=== PATIENT | male | born 1990 | race Caucasian/White ===

== ENCOUNTER 2018-10-23 07:03 | Day surgery (SDC) | payer MEDICAID, SELFPAY ==
[2018-10-23 07:26] VITALS: BP 127/69; PULSE 71; RESP 16; TEMP 35.9; O2SAT 98
[2018-10-23 07:30] VITALS: BP 127/69; PULSE 71; RESP 16; TEMP 35.9; O2SAT 98
[2018-10-23] MEDS: Lactated Ringers 1,000 ML 80 ML IV (07:40)
--- NOTE | 2018-10-23 08:27 | STOM_PTH ---
PATIENT: NILDA SHINE LOC: [facility] U#:[id number] AGE/SX: 28/M ROOM: RE10/23/[address]: Triny Moran : 1990 BED: DIS: 10/23/2018 SPEC #: [id number] RECD: 10/23/18 12:48 STATUS: JANEEN MOORE #: [id number] SMOOTH: 10/23/18 08:[address]: Triny Moran DEPT: Surgical Specimen RECD BY: Alberta Coleman ENTERED: 10/23/18 12:51 SP TYPE: STOMACH OTHR DR: Etta eCsar Tissues: 1 - BIOPSY BOWEL 2 - STOMACH BIOPSY 3 - ESOPHAGUS BIOPSY 4 - ESOPHAGUS BIOPSY Procedures: GROSS AND MICRO LEVEL 4 Comments: [id number]
--- NOTE | 2018-10-23 08:44 | ENDO_ITS ---
Date of service: 10/23/18 Time of Service: 08:43 Endoscopy Report DATE OF PROCEDURE: 10/23/18 PRE-OP DIAGNOSIS: gerd POST-OP DIAGNOSIS: other (esophagitisi ) PROCEDURE: egd w/ bx After informed consent was obtained the patient was take to the procedure room and placed in a supine position. Monitors were applied and a time out was done. The patients name, date of , procedure type, allergies to medications and metal in their body was reviewed. A bite block was placed and the patient was sedated. Once sedated and comfortable the gastroscope was advanced through the oropharynx which was grossly normal into the esophagus. The proximal and mid- esophagus were nl. In the distal esophagus there was mild esophagitis noted. The scope was advanced into the stomach and through the pylorus into the 3rd portion of the duodenum. The duodenum was noted to be nl. Biopsies were done . The scope was retracted back into the stomach and biopsies were done to rule out H. pylori. There were no ulcers. The scope was retroflexed. He has a has had sometime of surgery done- but the wrap is no longer complete and only appears to be 1/4 adn not fully around the stomach ( like only the ant. portion is still tacked to the stomach) - only causing distortion to the stomach architecture, but not preventing reflux. There small a hiatal hernia noted. The scope was retracted back into the esophagus and biopsies were done of the GE junction to rule out Izaguirre's. Position of GE junction was distorted. The scope was removed and the patient was woken up and taken back to [facility] in stable condition. Follow up: SURGEON: Triny Moran ANESTHESIA: GETA ESTIMATED BLOOD LOSS: 2 PATHOLOGY: other COMPLICATIONS: None DISPOSITION: PACU INDICATIONS: recurrent gerd and s/p gaby FINDINGS: see above
--- NOTE | 2018-10-23 08:44 | W.PM.DSUDISC ---
Discharge Plan Disposition Patient Disposition: HOME Condition: Good Discharge Details Reason For Visit: egd Attending Provider: Triny Becerra Primary Care Provider: Etta Cesar Home Meds and New Rx's Prescriptions: New Dexilant 30 mg capsule,biphase delayed releas 30 mg PO DAILY Qty: 30 RF: 11 Continued fluticasone propionate 50 mcg/actuation spray,suspension 1 spray RUTHANN DAILY RF: 0 sennosides [Senokot] 8.6 mg tablet 8.6 mg PO BID PRNRF: 0 loratadine [Allergy Relief (loratadine)] 10 mg tablet 10 mg PO DAILY RF: 0 Discontinued omeprazole 40 mg capsule,delayed release(DR/EC) 40 mg PO DAILY RF: 0 Discharge Instructions Additional Instructions: Findings:wrap appears partialy intact- depending on if they did a Tor[place] or T[place] Follow up:in office w/ Dr. becerra in 1-2 wks Please call if you develop: fevers >101.5 Nausea or Vomiting Abdominal pain that is not transient DAY SURGERY UNIT POST COLONOSCOPY INSTRUCTIONS 1. Because there will be medication in your system for the next 24 hours, you may feel a little sleepy. Your coordination will be affected. Therefore: a. Do not drive or operate dangerous equipment for 24 hours. b. Do not drink alcohol beverages for 24 hours (not even beer). c. Plan to go home and rest for the day. 2. Generally there are no restrictions on your activity after a day or so has gone by, but you may feel a bit fatigued for a few days. 3 After you arrive home you may have a light meal and return to a normal diet as you can tolerate it without feeling sick to your stomach. 4. After surgery, you may feel pain or discomfort. This should be only transient, but if it persists please contact your doctor. 5. If there are any questions regarding the findings of your procedure, please feel free to contact your doctor. 6. If you are unable to contact your doctor with a problem, contact the hospital at [phone]. 7. Continue all your regular medications unless directed otherwise. I understand the above instructions and have no questions. Signature of Patient or Responsible Adult Escort Date/Time Name of Responsible Adult Escort Signature of Nurse Date/Time Activity:: no driving x 24 hrs. no lifting over 10# x 24 hrs Diet:: lt meals x 24 hrs Discharge Orders Discharge Orders: Discharge Order (Routine); Ordered 10/23/18 Ordered By: Triny Becerra DS: Diagnosis Discharge Diagnosis (1) GERD (gastroesophageal reflux disease): Status: Chronic
[2018-10-23 09:20] VITALS: BP 138/76; PULSE 75; RESP 16; TEMP 35.8; O2SAT 98
== END 2018-10-23 09:43 | disposition home or self-care (01) ==
PROVIDERS: PCP Internal Medicine; Visit Provider Surgery
PROC: 0DJ68ZZ Inspection of Stomach, Via Natural or Artificial Opening Endoscopic (ICD-10-PCS; CPT 43235; principal; 2018-10-23 08:30)
DX: K21.0 Gastro-esophageal reflux disease with esophagitis (principal); K31.89 Other diseases of stomach and duodenum; K44.9 Diaphragmatic hernia without obstruction or gangrene; G47.33 Obstructive sleep apnea (adult) (pediatric)
CPT/HCPCS: 43239; 88305